=== PATIENT | female | born 1995 ===

== ENCOUNTER 2022-08-09 23:19 | Observation (INO) ==
[2022-08-10] MEDS ORDERED: PROPOFOL IV EMULSION 10 MG/ML 20 ML VIAL IV ONE (02:03)
[2022-08-10] MEDS ORDERED: MIDAZOLAM HCL 1 MG/ML 2ML VIAL ONE (02:03)
[2022-08-10] MEDS ORDERED: fentaNYL citrate PF 100 MCG/2 ML VIAL ONE (02:03)
[2022-08-10] MEDS ORDERED: ONDANSETRON INJ 2 MG/ML 2 ML VIAL ONE (02:03)
[2022-08-10] MEDS ORDERED: ONDANSETRON INJ 2 MG/ML 2 ML VIAL IV PRN (02:15)
[2022-08-10] MEDS ORDERED: ATROPINE SULFATE 0.1 MG/ML 10ML SYR IV PRN (02:15)
[2022-08-10] MEDS ORDERED: fentaNYL citrate PF 100 MCG/2 ML VIAL IV PRN (02:15)
[2022-08-10] MEDS ORDERED: ePHEDrine sulfate 50 MG/ML AMP IV PRN (02:15)
--- NOTE | 2022-08-10 02:15 | Anesthesiology Consultation ---
Date of Service August 10, 2022 Assessment & Plan (1) Encounter for pre-operative examination: Chart Review Chart Review: Acceptable Risk for Surgery and Patient NOT seen in Pre Admission Testing Consults Requested none History Height/Weight Height: 5 ft 3 in Weight: 80.7 kg Allergies Allergy/AdvReac Type Severity Reaction Status Date / Time hydroxyzine [From Vistaril] AdvReac Anxiety Verified 08/10/22 02:07 Social History Smoking Status: Current every day smoker tobacco type: cigarettes Smoking cigarettes per day: 15-20 Do You Dip or Chew Tobacco: No Hx Alcohol Use: No Hx Substance Use: Yes substance use type: former substance user Last Used Substance Other:: Last use: first week of June 2022 Physical Exam Vital Signs Last Vital Signs Temp 97.9 F 08/10/22 01:31 Pulse 79 08/10/22 01:31 Resp 18 08/10/22 01:31 BP 124/73 08/10/22 01:31 Pulse Ox 96 08/10/22 01:31 O2 Del Method Room Air 08/10/22 01:31
--- NOTE | 2022-08-10 02:29 | History & Physical Report ---
Date of Service August 10, 2022 Assessment & Plan (1) Encounter for pre-operative examination: (2) Foreign body: Plan: Proceed with planned EGD. Admission and Anticipated Discharge Date Admission Date: August 10, 2022 History of Present Illness Chief Complaint: EGD for foreign body removal. Primary Care Provider: NO PCP 27 y/o F transferred from [facility] for urgent EGD after she accidentally swallowed her permanent retainer with metal wireing while eating. They reported abdominal xray at their facility showed the retainer was within the stomach. Allergies Allergy/AdvReac Type Severity Reaction Status Date / Time hydroxyzine [From Vistaril] AdvReac Anxiety Verified 08/10/22 02:07 Past Med/Surg History Social History Smoking Status: Current every day smoker Cigarettes Per Day: 15-20; Second Hand Exposure: Yes; Do You Dip or Chew Tobacco: No; Tobacco Cessation Education Requested by Patient: No Hx Alcohol Use: No Hx Substance Use: Yes Last Used Substance Other:: Last use: first week of June 2022 Preferred Language: French Communication Ability: Effective [employer]il[employer] Required: No Beliefs That Will Affect Care: None Current Living Situation: Rehab Current Living Situation Comment: [facility] Feels Safe at Home: Yes Safety Concerns: Feels Safe At This Time Assistive Devices: Denture - Upper and Glasses Review of Systems All systems reviewed & are unremarkable except as noted in HPI & below Physical Exam Constitutional: WD/WN, vitals as above Respiratory: normal respiratory effort, lungs clear to auscultation Cardiovascular: RRR, no murmur, no edema Gastrointestinal (Abdomen): normal bowel sounds, soft, nontender, no hepatosplenomegaly Psychiatric: A+Ox3, euthymic affect Results & Data Vital Signs (Past 12 Hours) Vital Signs Temp Pulse Resp BP Pulse Ox O2 Del Method 08/10/22 01:31 36.6 C 79 18 124/73 96 Room Air
--- NOTE | 2022-08-10 02:44 | History & Physical Report ---
Date of Service August 10, 2022 Assessment & Plan (1) Ingestion of foreign body: Plan: 27-year-old woman with past medical history of anxiety, depression, substance use disorder, who presents to the hospital for management of accidentally ingested metal foreign body. Ingestion of foreign body -X-ray shows piece of metal in the stomach, per outside facility x-ray report. -GI consulted: recommended immediate EGD. -Metal wire already past stomach and 2nd part of duodenum by the time of EGD. Bleeding seen at duodenal bulb. * Direct admit to MedSurg unit * NPO * IV Protonix 40 mg * KUB ordered. Awaiting report * Consider surgery consult if foreign body fails to pass. Depression/anxiety -Patient on buspirone, Prozac, amitriptyline * Continue home meds Code: Full code Dispo: Med-Surg FEN/GI: NPO DVT Prophylaxis: None PT/OT: No Consults: Gastroenterology (2) Major depressive disorder: (3) Anxiety: Admission and Anticipated Discharge Date Admission Date: August 10, 2022 History of Present Illness Primary Care Provider: NO PCP Carmen is a 27-year-old woman with a past medical history of anxiety, major depressive disorder, and substance abuse disorder (on monthly injections of Vivitrol), who presents to the hospital from outside facility for worsening chest pain that started this evening. Patient was eating breakfast when a piece of the patient's metal permanent retainer snapped and she swallowed it. She was asymptomatic until about 4:30 PM in the afternoon, when she began to experience sharp left-sided chest pain (6/10) that radiated across her chest and was aggravated by deep inspirations. She proceeded to the urgent care center, where she recalled having swallowed a piece of a retainer. Images were obtained showing piece of metal lodged in the stomach. She was then sent to [facility] for immediate care. On admission, she denies headache, shortness of breath, chest pain, abdominal pain, nausea, or back pain. Allergies Allergy/AdvReac Type Severity Reaction Status Date / Time hydroxyzine [From Vistaril] AdvReac Anxiety Verified 08/10/22 02:07 Home Medications Medication Instructions Recorded Confirmed Type amitriptyline 10 mg tablet 10 mg PO HS 08/10/22 08/10/22 History buspirone 10 mg tablet 20 mg PO BID 08/10/22 08/10/22 History fluoxetine 20 mg capsule 20 mg PO DAILY 08/10/22 08/10/22 History Past Med/Surg History Social History Smoking Status: Current every day smoker Cigarettes Per Day: 15-20; Second Hand Exposure: Yes; Do You Dip or Chew Tobacco: No; Tobacco Cessation Education Requested by Patient: No Hx Alcohol Use: No Hx Substance Use: Yes Last Used Substance Other:: Last use: first week of June 2022 Preferred Language: Bangladeshi Communication Ability: Effective Supervisor Grinding Required: No Beliefs That Will Affect Care: None Current Living Situation: Rehab Current Living Situation Comment: [facility] Feels Safe at Home: Yes Safety Concerns: Feels Safe At This Time Assistive Devices: Denture - Upper and Glasses Review of Systems Review of Systems: All systems reviewed & are unremarkable except as noted in HPI & below Physical Exam Physical Exam: General: No acute distress HEENT: PERRLA. Normal conjunctiva, anicteric sclera. Oropharynx normal. Respiratory: Normal respiratory effort, CTABL. Cardiovascular: RRR without murmurs, gallops, or rubs. No edema. GI: Soft abdomen with normal bowel sounds heard on auscultation. Nontender x4 quadrants Neuro: Alert and oriented x3. Results & Data Results & Data Vital Signs (Past 12 Hours) Vital Signs Temp Pulse Resp BP Pulse Ox O2 Del Method 08/10/22 02:28 36.7 C 70 16 102/64 99 Room Air 08/10/22 01:31 36.6 C 79 18 124/73 96 Room Air Supervising Physician Co-Signing Physician Notes Patient seen and examined, chart reviewed, case discussed with Dr. Lagos and I agree with the assessment and plan as above. In brief, patient is a 27yo female with history of MDD, substance abuse on monthly Vivitrol injection presenting with accidental ingestion of foreign body. Patient was eating granola and her fixed-retainer got broken. She accidentally swallowed the wires. On initial imaging wire was seen in the stomach. Patient was taken to the OR for EGD but the foreign body had already passed from the stomach. There was a small amount of blood noted in the duodenal bulb. On exam she is afebrile, HD stable, NAD. Sitting up in bed talking with her mother Skin - intact, no rash HEENT - NC/AT, PERRL Heart - +S1/S2, regular, no m/r/g Lungs - CTA Abd - +BS, soft, NT/ND Ext -warm, well perfused Assessment/Plan -Accidental ingestion of foreign body - metal wires x 2 from retainer - unfortunately unable to be retrieved by EGD due to movement past the stomach Small amount of bleeding noted in the duodenal bulb Risk for perforation -Keep NPO -LR at 125mL/hr x 2L -Protonix IV BID -GI assistance appreciated -KUB - monitor movement of foreign body with serial studies as needed -General Surgery consultation if no passage of foreign body -Avoidance of narcotics per patient request as she has history of substance abuse -Remainder as above
[2022-08-10] MEDS ORDERED: LORazepam 2 MG/1 ML VIAL IV PRN (03:34)
--- NOTE | 2022-08-10 03:47 | Anesthesiology Progress Note ---
Date of Service August 10, 2022 Anesthesia Post Procedure Vital Signs Vital Signs: Temp Pulse Resp BP Pulse Ox O2 Del Method 08/10/22 03:35 86 14 117/79 95 Room Air 08/10/22 03:45 85 13 113/76 93 Room Air 08/10/22 03:24 96.8 F L 105 H 40 H 101/69 97 Room Air 08/10/22 02:28 98.1 F 70 16 102/64 99 Room Air 08/10/22 01:31 97.9 F 79 18 124/73 96 Room Air Transfer of Care Handoff Completed per policy Notes Mental Status: alert / awake / arousable and participated in evaluation Patient Amnestic to Procedure: Yes Nausea / Vomiting: adequately controlled Pain: adequately controlled Airway Patency, RR, SpO2: stable & adequate BP & HR: stable & adequate Hydration State: stable & adequate Anesthetic Complications: no major complications apparent and Pt Satisfied with anesthetic care
--- NOTE | 2022-08-10 03:48 | Communication Note ---
Date of Service: August 10, 2022 EGD completed overnight. Patient reports she swallowed a metal implanted retainer with wires on the end at 6 AM. She did not report to local hospital until around 5-6 pm at night after she developed chest pain after eating. A CXR was obtained at that time around 7-8 PM which showed a 2.8 cm metallic density located within suspected stomach without any free air. She was transferred to [facility] at 130 AM. EGD results: - Z-line regular, 38 cm from the incisors. - Normal esophagus. - Hematin (altered blood/nrkttc-uvgxeo-ipvo material) in the gastric body. - Blood in the duodenal bulb. - No specimens collected. - The foreign body has already passed the stomach and to the point of second portion of the duodenum. Patient reported swallowing retainer around 6 AM which was 21 hours ago. There was some fresh blood in the duodenal bulb due to abrasions from trauma from the retainer passing through. No active bleeding. Recommendations: - Return patient to hospital [facility] for ongoing care. - NPO. - Continue present medications. - PPI 40 mg BID - Obtain a KUB. Will need monitored with serial KUBs. - May need surgical consult if it does not pass through the intestines as she is at risk for perforation as she reports there is 2 wires on the end of the retainer. Fior Estes, Gastroenterology and Hepatology
--- NOTE | 2022-08-10 04:20 | Billing Data ---
Date of Service August 10, 2022 Coding Level of Care Code 98025 INT INP/OBS CARE
[2022-08-10] MEDS ORDERED: ACETAMINOPHEN 1,000 MG/100 ML VIAL IV STA (04:25)
[2022-08-10] MEDS: LACTATED RINGER'S 1,000 ML IV SCH ×2 (04:41→12:34)
[2022-08-10 06:40] LABS: Basophils # (auto) 0.03 K/uL (0-0.2); Basophils % (auto) 0.3 %; Eosinophils # (auto) 0.12 K/uL (0-0.50); Hematocrit (blood only) 30.1 % (37.0-47.0); Hemoglobin 10.6 g/dl (12.0-16.0); Immature Granulocytes # (auto) 0.05 K/uL (0.01-0.20); Immature Granulocytes % (auto) 0.4 %; Lymphocytes # (auto) 1.77 K/uL (1.2-3.4); Lymphocytes % (auto) 15.4 %; Mean Corpuscular Hemoglobin 31.1 pg (25.0-34.0); Mean Corpuscular Hgb Conc 35.2 g/dL (32.0-36.0); Mean Corpuscular Volume 88.3 fL (80.0-100.0); Mean Platelet Volume 9.2 fL (9.4-12.4); Monocytes % (auto) 5.2 %; Neutrophils # (auto) 8.89 K/uL (1.40-6.50); Neutrophils % (auto) 77.7 %; Platelet Count 323 K/uL (130-400); RDW Coefficient of Variation 12.9 % (11.5-14.5); RDW Standard Deviation 41.9 fL (36.4-46.3); Red Blood Count 3.41 M/uL (4.20-5.40); White Blood Count 11.46 K/ul (4.8-10.8)
[2022-08-10 07:04] LABS: BUN Creatinine Ratio 22.7 (10-20); Creatinine Clr Calc Pharmacy 127.7 ml/min; Est GFR (African American) 139.3 ml/min; Est GFR (Non-African American) 120.2 ml/min; Potassium 3.7 mmol/L (3.5-5.1)
[2022-08-10] MEDS ORDERED: NICOTINE 14 MG/24 HR PATCH TD SCH (09:00)
[2022-08-10] MEDS: busPIRone 5 MG TAB PO SCH ×2 (09:56→20:29)
[2022-08-10] MEDS: FLUoxetine HCL 20 MG CAP PO SCH (09:56)
[2022-08-10] MEDS: PANTOprazole 40 MG in SYRINGE 0 ML IV SCH ×2 (09:57→20:30)
--- NOTE | 2022-08-10 11:53 | Hospitalist Progress Note ---
Date of Service August 10, 2022 Assessment & Plan (1) Ingestion of foreign body: Plan: 27-year-old woman with past medical history of anxiety, depression, substance use disorder, who presents to the hospital for management of accidentally ingested metal foreign body. Ingestion of foreign body -X-ray shows piece of metal in the stomach, per outside facility x-ray report. * Direct admit to MedSurg unit * Made n.p.o. * GI consulted: Underwent immediate EGD, unable to retrieve metal component of retainer.. * Discussed with Dr. Estes, she is requesting General Surgery consult, as per her request, consult is placed Depression/anxiety -Patient on buspirone, Prozac, amitriptyline * Continue home meds Substance use disorder -Patient receives monthly shot of Vivitrol. * Continue to monitor. Code: Full code Dispo: Med-Surg FEN/GI: NPO. Will continue NPO until seen by surgery and then will defer to them whether pt should be allowed to eat DVT Prophylaxis: PT/OT: Consults: Gastroenterology, General Surgery continue IVF for now (2) Major depressive disorder: Plan: stable (3) Anxiety: Plan: stable (4) Substance use disorder: Plan: stable Admission and Anticipated Discharge Date Admission Date: August 10, 2022 Subjective accident ingestion of dental retainer metal wire while eating. Underwent EGD with Dr. Estes earlier this morning for attempted removal of object, but had passed beyond the point where could be retrieved Review of Systems Review of Systems: neg Eyes: nl Respiratory: normal Cardiovascular: Additional Comments: no chest pain Gastrointestinal: denies abdominal pain Neurologic: no focal deficits Physical Exam Physical Exam: WDWN WF in NAD Pt was examined with YENI Antonio in room during entire exam and discussion with pt Constitutional: afebrile Eyes: PERRL, conjunctivae normal, anicteric sclerae Respiratory: normal respiratory effort, lungs clear to auscultation Cardiovascular: RRR, no murmur, no edema Gastrointestinal (Abdomen): Inspection/Auscultation: normal bowel sounds nontender, nondistended Neurologic: PERRL, EOMI, accommodation nl, no face palsy, no dysarthria Results & Data Results & Data Vital Signs (Past 12 Hours) Vital Signs Temp Pulse Resp BP Pulse Ox O2 Del Method 08/10/22 07:18 36.7 C 77 16 96/58 L 94 Room Air 08/10/22 06:02 36.8 C 74 16 101/57 L 93 Room Air 08/10/22 05:13 36.7 C 80 16 94/57 L 96 Room Air 08/10/22 04:30 36.9 C 80 16 98/63 L 95 Room Air 08/10/22 04:00 36.8 C 88 18 94/62 L 93 Room Air 08/10/22 03:35 86 14 117/79 95 Room Air 08/10/22 03:55 36.3 C L 81 14 109/67 94 Room Air 08/10/22 03:45 85 13 113/76 93 Room Air 08/10/22 03:24 36 C L 105 H 40 H 101/69 97 Room Air 08/10/22 02:28 36.7 C 70 16 102/64 99 Room Air 08/10/22 01:31 36.6 C 79 18 124/73 96 Room Air PG Care Time/CCT Total # of Minutes Spent Total Time Spent with Patient: Total time spent is greater than 50% in coordination of care (as documented) at patient's floor/unit and/or counseling patient: Coding Level of Care Code 70129 SUB INP/OBS CARE 2/35MIN Diagnoses Ingestion of foreign body T18.9XXA Major depressive disorder F32.9 Anxiety F41.9 Substance use disorder F19.90
--- NOTE | 2022-08-10 12:36 | Surgery Consultation ---
Date of Consultation August 10, 2022 Assessment & Plan (1) Ingestion of foreign body: 27-year-old female with ingested foreign body. No indication for surgery at this time Daily KUBs May have clear liquids Consider bowel regimen If any significant change in condition would recommend CT imaging Surgery will continue to follow History of Present Illness Reason for Consultation: Swallowed foreign body Attending Physician: Levi Reagan MD History of Present Illness 27-year-old female admitted for swallowing foreign body. She was eating and felt her retainer break and swallowed a piece of the metal. She was doing okay until she developed chest pain. She was seen at [facility] and a chest x- ray showed metallic foreign body in the stomach. She was transferred to [facility] and EGD was performed overnight and the metallic piece had passed beyond the stomach. There was some bleeding in the duodenal bulb where it had gone through. She currently has no abdominal pain and is feeling quite hungry. History of x3. Allergies Allergy/AdvReac Type Severity Reaction Status Date / Time hydroxyzine [From Vistaril] AdvReac Anxiety Verified 08/10/22 02:07 Home Medications Medication Instructions Recorded Confirmed Type amitriptyline 10 mg tablet 10 mg PO HS 08/10/22 08/10/22 History buspirone 10 mg tablet 20 mg PO BID 08/10/22 08/10/22 History fluoxetine 20 mg capsule 20 mg PO DAILY 08/10/22 08/10/22 History Patient History Social History Smoking Status: Current every day smoker Cigarettes Per Day: 15-20; Second Hand Exposure: Yes; Do You Dip or Chew Tobacco: No; Tobacco Cessation Education Requested by Patient: No Hx Alcohol Use: No Hx Substance Use: Yes Last Used Substance Other:: Last use: first week of June 2022 Preferred Language: Macedonian Communication Ability: Effective Japanese Professor Required: No Beliefs That Will Affect Care: None Current Living Situation: Rehab Current Living Situation Comment: [facility] Feels Safe at Home: Yes Safety Concerns: Feels Safe At This Time Assistive Devices: None Review of Systems Review of Systems: All systems reviewed & are unremarkable except as noted in HPI & below Physical Exam Constitutional: WD/WN, vitals as above + obese Respiratory: normal respiratory effort, lungs clear to auscultation Cardiovascular: RRR, no murmur, no edema Gastrointestinal (Abdomen): normal bowel sounds, soft, nontender, no hepatosplenomegaly Results & Data Vital Signs (Past 12 Hours) Vital Signs Temp Pulse Resp BP Pulse Ox O2 Del Method 08/10/22 07:18 36.7 C 77 16 96/58 L 94 Room Air 08/10/22 06:02 36.8 C 74 16 101/57 L 93 Room Air 08/10/22 05:13 36.7 C 80 16 94/57 L 96 Room Air 08/10/22 04:30 36.9 C 80 16 98/63 L 95 Room Air 08/10/22 04:00 36.8 C 88 18 94/62 L 93 Room Air 08/10/22 03:35 86 14 117/79 95 Room Air 08/10/22 03:55 36.3 C L 81 14 109/67 94 Room Air 08/10/22 03:45 85 13 113/76 93 Room Air 08/10/22 03:24 36 C L 105 H 40 H 101/69 97 Room Air 08/10/22 02:28 36.7 C 70 16 102/64 99 Room Air 08/10/22 01:31 36.6 C 79 18 124/73 96 Room Air Laboratory Results Laboratory Results - last 24 hr 08/10/22 08/10/22 05:51 05:51 WBC 11.46 H RBC 3.41 L Hgb 10.6 L Hct 30.1 L MCV 88.3 MCH 31.1 MCHC 35.2 RDW Std Deviation 41.9 RDW Coeff of Martha 12.9 Plt Count 323 MPV 9.2 L Immature Gran % (Auto) 0.4 Neut % (Auto) 77.7 Lymph % (Auto) 15.4 Hill % (Auto) 5.2 Eos % (Auto) 1.0 Baso % (Auto) 0.3 Neut # (Auto) 8.89 H Lymph # (Auto) 1.77 Hill # (Auto) 0.60 H Eos # (Auto) 0.12 Baso # (Auto) 0.03 Immature Gran # (Auto) 0.05 Sodium 137 Potassium 3.7 Chloride 107 Carbon Dioxide 24 Anion Gap 6 BUN 15 Creatinine 0.66 Est Cr Clr Drug Dosing 127.7 Est GFR ( Amer) 139.3 Est GFR (Non-Af Amer) 120.2 BUN/Creatinine Ratio 22.7 H Glucose 80 Calcium 8.0 L Diagnostic Findings I personally reviewed the KUB and agree with the assessment of a 2 to 2.5 cm metallic foreign body within the proximal small bowel. No free air. PG Care Time/CCT Total # of Minutes Spent Total Time Spent with Patient: Total time spent is greater than 50% in coordination of care (as documented) at patient's floor/unit and/or counseling patient: Coding Level of Care Code 14735 IN/OBS CONSULT LVL 3,45M Diagnoses Ingestion of foreign body T18.9XXA
--- NOTE | 2022-08-10 17:45 | XRay Report ---
KUB CLINICAL HISTORY: Foreign body ingestion. FINDINGS: 2 AP supine abdominal radiographs are compared to study dated 08/09/2022. There is a nonobst ructed abdominal bowel gas pattern. Moderate fecal retention is seen throughout the colon. A 3.3 cm l inear metallic foreign body projects over the right midabdomen. This has progressed distally as juan josé red to yesterday. No additional radiodense foreign body is identified. No evidence of intraperitoneal free air is seen on these supine images. There are no abnormal abdominal calcifications. Phleboliths are seen in the pelvis. The bony structures appear intact. IMPRESSION: 1. There is a linear metallic foreign body projecting over the right midabdomen as above. This has pr ogressed distally as compared to yesterday. 2. No bowel obstruction. Electronically signed by: Frankie Michael M.D. 08/10/2022 5:44 PM
[2022-08-10] MEDS ORDERED: NICOTINE POLACRILEX 2 MG GUM MT PRN (19:13)
[2022-08-10] MEDS ORDERED: AMITRIPTYLINE HCL 10 MG TAB PO SCH (21:00)
--- NOTE | 2022-08-11 05:06 | Surgery Progress Note ---
Date of Service August 11, 2022 Assessment & Plan (1) Foreign body: Plan: Patient has been admitted on the hospitalist service. EGD performed on 08/10/2022, however foreign body had already passed through the stomach Check KUB this morning when available Check a.m. labs when available Monitor stool for passage of foreign body At the present time patient does not have an acute abdomen in need of surgical intervention Admission and Anticipated Discharge Date Admission Date: August 10, 2022 Supervising Physician Co-Signing Physician Notes Patient seen and examined, agree with above. Ingested metallic foreign body. No pain, had a bowel movement. Awaiting morning KUB, but yesterday showed progression of metallic object. Abdominal exam benign. We will follow-up KUB, advance diet, recommend MiraLAX. Subjective Patient is resting comfortably in bed. She notes she had multiple bowel movements since admission but is unsure if she passed any foreign objects. She denies any nausea or vomiting. She denies any abdominal pain. Physical Exam Gastrointestinal (Abdomen): Abdomen is soft and nondistended. There is no rebound tenderness or guarding. There is no pain with palpation. Results & Data Vital Signs (Past 12 Hours) Vital Signs Temp Pulse Resp BP Pulse Ox O2 Del Method 08/11/22 03:14 36.8 C 69 15 97/62 L 97 Room Air 08/10/22 20:35 36.9 C 68 16 111/71 97 Room Air 08/10/22 17:23 108/65 PG Care Time/CCT Total # of Minutes Spent Total Time Spent with Patient: Total time spent is greater than 50% in coordination of care (as documented) at patient's floor/unit and/or counseling patient: Coding Level of Care Code 03330 SUB INP/OBS CARE 06/12MIN Diagnoses Foreign body
[2022-08-11 06:24] LABS: Calcium 8.3 mg/dl (8.6-10.3); Potassium 3.9 mmol/L (3.5-5.1)
[2022-08-11 06:29] LABS: BUN Creatinine Ratio 13.8 (10-20); Creatinine Clr Calc Pharmacy 129.6 ml/min; Est GFR (Non-African American) 120.8 ml/min
[2022-08-11 06:45] LABS: Hematocrit (blood only) 31.2 % (37.0-47.0); Hemoglobin 10.7 g/dl (12.0-16.0); Mean Corpuscular Hemoglobin 30.2 pg (25.0-34.0); Mean Corpuscular Hgb Conc 34.3 g/dL (32.0-36.0); Mean Corpuscular Volume 88.1 fL (80.0-100.0); Platelet Count 322 K/uL (130-400); RDW Coefficient of Variation 13.1 % (11.5-14.5); RDW Standard Deviation 42.4 fL (36.4-46.3); Red Blood Count 3.54 M/uL (4.20-5.40); White Blood Count 5.32 K/ul (4.8-10.8)
[2022-08-11] MEDS ORDERED: NICOTINE 21 MG/24 HR TDSY TD SCH (09:00)
[2022-08-11] MEDS: PANTOprazole 40 MG in SYRINGE 0 ML IV SCH (09:06)
[2022-08-11] MEDS: busPIRone 5 MG TAB PO SCH (09:06)
[2022-08-11] MEDS: FLUoxetine HCL 20 MG CAP PO SCH (09:07)
[2022-08-11] MEDS ORDERED: POLYETHYLENE (MIRALAX) 17 GM PACK PO SCH (09:45)
--- NOTE | 2022-08-11 10:37 | XRay Report ---
XR KUB/Abdomen 1 view CLINICAL HISTORY: foreign body TECHNIQUE: 1 view of the abdomen was obtained. Comparison: Comparison is made to abdomen radiograph 08/10/2022 FINDINGS: Previously noted radiodense foreign body is no longer seen. The osseous structures are grossly unrema rkable. The bowel gas pattern is nonobstructive. A moderate amount of stool is noted within the large bowel. IMPRESSION: Previously noted radiodense foreign body is no longer seen and likely passed. ACT 112: Negative or not required by law. Electronically signed by: Cristian Martínez M.D. 08/11/2022 10:34 AM
--- NOTE | 2022-08-11 13:41 | Discharge Summary ---
Date of Service August 11, 2022 Admission HPI Per Admitting Provider Carmen is a 27-year-old woman with a past medical history of anxiety, major depressive disorder, and substance abuse disorder (on monthly injections of Vivitrol), who presents to the hospital from outside facility for worsening chest pain that started this evening. Patient was eating breakfast when a piece of the patient's metal permanent retainer snapped and she swallowed it. She was asymptomatic until about 4:30 PM in the afternoon, when she began to experience sharp left-sided chest pain (6/10) that radiated across her chest and was aggravated by deep inspirations. She proceeded to the urgent care center, where she recalled having swallowed a piece of a retainer. Images were obtained showing piece of metal lodged in the stomach. She was then sent to [facility] for immediate care. On admission, she denies headache, shortness of breath, chest pain, abdominal pain, nausea, or back pain. Today she feels absolutely fine and is anxiously awaiting dc Admission Exam Per Admitting Provider General: No acute distress HEENT: PERRLA. Normal conjunctiva, anicteric sclera. Oropharynx normal. Respiratory: Normal respiratory effort, CTABL. Cardiovascular: RRR without murmurs, gallops, or rubs. No edema. GI: Soft abdomen with normal bowel sounds heard on auscultation. Nontender x4 quadrants Neuro: Alert and oriented x3. Principal Diagnosis (1) Ingestion of foreign body: Plan: 27-year-old woman with past medical history of anxiety, depression, substance use disorder, who presents to the hospital for management of accidentally ingested metal foreign body. Ingestion of foreign body -X-ray shows piece of metal in the stomach, per outside facility x-ray report. -GI consulted: recommended immediate EGD. -Metal wire already past stomach and 2nd part of duodenum by the time of EGD. Bleeding seen at duodenal bulb. Initial KUB: 1. There is a linear metallic foreign body projecting over the right midabdomen as above. This has progressed distally as compared to yesterday. over past 24 hrs pt has had 2 good BM's, repeat KUB : Previously noted radiodense foreign body is no longer seen. The osseous structures are grossly unremarkable. The bowel gas pattern is nonobstructive. A moderate amount of stool is noted within the large bowel. Previously noted radiodense foreign body is no longer seen and likely passed. Call placed and discussed with Dr. Mark Hinojosa. based on results of repeat KUB, he feels comfortable in dc pt at this time Discharge Exam WDWN WF in NAD Constitutional WD/WN, vitals as above Neck trachea midline, no thyromegaly Respiratory normal respiratory effort, lungs clear to auscultation totally clear Cardiovascular RRR, no murmur, no edema Gastrointestinal (Abdomen) soft, nontender, normal BS Musculoskeletal no cyanosis or clubbing, extremities motor strength 5/5 Neurologic PERRL, EOMI, accommodation nl, no face palsy, no dysarthria Discharge Data Allergies Allergy/AdvReac Type Severity Reaction Status Date / Time hydroxyzine [From Vistaril] AdvReac Anxiety Verified 08/10/22 02:07 Consultations 08/10/22 02:30 Consult Gastroenterology Routine 08/10/22 11:42 Consult General Surgery Routine Procedures Performed Operation Date: 08/10/22 02:45 Actual Procedures p Esophagogastroduodenoscopy(Not Applicable) - Fior Estes, DO Hospital Course (1) Ingestion of foreign body: Based on repeat KUB, the braces retained has most likely passed in her stool and is no longer an issue. Diet was advanced, which she totally tolerated. She is aware that if she should develop symptoms, would need to be reevaluated (2) Major depressive disorder: as per facility, resume preadmit meds (3) Anxiety: as per facility, resume preadmit meds (4) Substance use disorder: as per facility, resume preadmit meds Total Time Total Time Spent Total Time Spent (In Minutes): 35 Discharge Plan Discharge Items Patient Disposition: Drug & Alcohol Rehab Reason For Visit: SWALLOWED METAL RETAINER PIECE Discharge Diagnosis: swallowed metal retainer piece Condition on Discharge: Good Activity: Resume your previous activity Lifting: None Bathing: No limitations Exercise/Sports: None Driving/Machine Use: No limitations Weightbearing: Full weightbearing Non-emergency contact: Primary Care Provider Call non-emergency contact if: your symptoms worsen Follow-up/Referrals: PCP,NO [Primary Care Provider] - Diet: Regular Addtl Attending Provider Instructions: Pt appears to have passed the retainer, feels fine and should follow up for this if symptoms should arise Pending Studies at Discharge: No Stand-Alone Forms: My [facility] Skilled Items Patient informed of condition?: Yes DNR: No Discharge Level of Care: Acute rehab Communicable Disease: No Discharge Prognosis: Stable Lines: None Urinary Catheter: No Medications and DC Order Prescriptions: Continued amitriptyline 10 mg tablet 10 mg PO HS buspirone 10 mg tablet 20 mg PO BID fluoxetine 20 mg capsule 20 mg PO DAILY Discharge Orders: Discharge Order (Routine); Ordered 08/11/22 Ordered By: Levi Reagan Admission Data Admit Date/Time: 08/10/22 01:10 Attending Provider: Levi Reagan Admit Provider: Mac Lagos Primary Care Provider: PCP,NO Other Providers: Juan Steel ; Felix Sanders ; Kimberly Reid ; Linsey Maciel ; Hannah Dickens ; Talya Sam ; Tomy Solomon ; Austin Ugarte ; Rafat Castillo ; David Boothe ; Mau Thakur ; Alisha Parra ; Luana More ; Josie Nation ; Jes Sosa ; Shelton Fonseca ; Miguel Brannon ; Eduar Rodriguez ; Fior Estes ; Jaiden Aguayo Jr ; Sosa Deutsch Robert M. ; Umair Farrell ; Julio César Elliott ; Sabino Barrett ; Mark Hinojosa ; Marli Nesbitt ; Richar Urbano ; Harjit Hernandez Kennita L. Coding Level of Care Code 07708 IN/OBS DISCH 30 MIN/LESS Diagnoses Ingestion of foreign body T18.9XXA Major depressive disorder F32.9 Anxiety F41.9 Substance use disorder F19.90
== END 2022-08-11 16:27 | disposition alcohol treatment (31) ==
LOC: SUATTDRO 08-10 01:10 → 3W 08-10 01:10 → INTOOBSV 08-10 01:10